=== PATIENT | female | born 1970 | race American Indian/Alaskan Native ===

== ENCOUNTER 2016-07-22 15:09 | Emergency (ER) | payer MEDICARE ==
[2016-07-22] MEDS ORDERED: CATAPRES PO ONE (18:53)
--- NOTE | 2016-07-22 19:20 | XRay Report ---
FINAL REPORT EXAM: XR HAND 3 LT HISTORY: pain TECHNIQUE: 3 views of left hand PRIORS: None. FINDINGS: No fracture is identified. No dislocation seen. Joint spaces are within normal limits. No erosive bony change identified. Carpal bones maintain normal alignment. Distal radius and ulna are intact. No radiopaque foreign bodies seen. IMPRESSION: Negative hand series
[2016-07-22] MEDS ORDERED: NORCO 5/325 PO ONE (19:21)
--- NOTE | 2016-07-22 19:31 | XRay Report ---
FINAL REPORT EXAM: XR WRIST 3 LT HISTORY: pain TECHNIQUE: Left wrist 3 views PRIORS: None. FINDINGS: Carpal bones maintain normal alignment. No acute fracture is identified. The distal radius and ulna are intact. IMPRESSION: Negative wrist series
--- NOTE | 2016-07-22 20:29 | Emergency Department Report ---
ED Upper Extremity Inj HPI - General Chief Complaint: Extremity Injury, Upper Stated Complaint: LT ARM/WRIST/FINGER INJURY Time Seen by Provider: 07/22/16 16:29 Source: patient Mode of arrival: Ambulatory Limitations: No Limitations - History of Present Illness Initial Comments: Patient presents with left lower arm, wrist, finger pain. She states that her son jumped on the bed this morning and landed on her arm. He is 10 years old. She is currently on oxycodone that she gets from her primary care physician Dr. Hinton. She states she gets it for neuropathy. She states she has not taken it since this am. She also presents with elevated blood pressure 181/131 she takes Diovan, clonidine, metoprolol. She has not taken her second or third dose of clonidine. Her pain is a 10/10. She denies chest pain, dizziness, vomiting, nausea. MD Complaint: Injury to:: left, forearm, wrist, hand -: Sudden Other Extremity Injury: Hand: Left, Wrist: Left, Forearm: Left Other Injuries: none Handedness: right Place: home Severity scale (0 -10): 10 Worsens With: other (palpation) Context: direct blow Associated Symptoms: denies other symptoms - Related Data Previous Rx's Medication Instructions Recorded Last Taken Type Oxycodone HCl/Acetaminophen 1 each PO Q6HR PRN #15 tablet 03/18/16 07/21/16 Rx [Percocet 10/325 mg] Allergies Allergy/AdvReac Type Severity Reaction Status Date / Time amoxicillin Allergy Hives Verified 03/17/16 16:35 ED Review of Systems ROS: Stated complaint: LT ARM/WRIST/FINGER INJURY Other details as noted in HPI Constitutional: denies: chills, fever Eyes: denies: eye pain, eye discharge, vision change Respiratory: denies: cough, shortness of breath, wheezing Cardiovascular: denies: chest pain, palpitations Gastrointestinal: denies: abdominal pain, nausea, diarrhea Genitourinary: denies: urgency, dysuria, discharge Musculoskeletal: as per HPI. denies: back pain, joint swelling, arthralgia Skin: denies: rash, lesions Neurological: denies: headache, weakness, paresthesias ED Past Medical Hx - Past Medical History Hx Hypertension: Yes Hx CVA: Yes Hx Seizures: Yes Hx Asthma: Yes Additional medical history: hearing impaired - Surgical History Hx Cholecystectomy: Yes Additional Surgical History: hysterectomy. x 1 - Social History Smoking Status: Current Every Day Smoker Substance Use Type: None - Medications Home Medications: Home Medications Medication Instructions Recorded Confirmed Last Taken Type Oxycodone HCl/Acetaminophen 1 each PO Q6HR PRN #15 tablet 03/18/16 07/22/1604/27 Rx [Percocet 10/325 mg] ED Physical Exam - General Limitations: No Limitations General appearance: alert, in no apparent distress - Head Head exam: Present: atraumatic, normocephalic - Eye Eye exam: Present: normal appearance - Neck Neck exam: Present: normal inspection, full ROM - Respiratory Respiratory exam: Present: normal lung sounds bilaterally. Absent: respiratory distress - Cardiovascular Cardiovascular Exam: Present: regular rate, normal rhythm. Absent: systolic murmur, diastolic murmur, rubs, gallop - Expanded Upper Extremity Exam Left Shoulder Exam: Present: normal inspection, full ROM Upper Arm exam: Present: normal inspection, full ROM Elbow exam: Present: normal inspection, full ROM Forearm Wrist exam: Present: full ROM, tenderness (posterior ), swelling (mild) , ecchymosis (mild) Hand Wrist exam: Present: tenderness, other (pt is able to move her fingers and thumb on left hand but very slowly. She is unable to flex her thumb.). Absent : full ROM, swelling Neuro motor exam: Present: wrist extension intact, thumb opposition intact, thumb adduction intact Vascular: Present: normal capillary refill. Absent: vascular compromise - Back Exam Back exam: Present: normal inspection, full ROM - Neurological Exam Neurological exam: Present: alert, oriented X3 - Psychiatric Psychiatric exam: Present: normal affect, normal mood - Skin Skin exam: Present: warm, dry, intact, normal color. Absent: rash ED Course Vital Signs 07/22/16 07/22/16 07/22/16 15:34 17:42 19:15 Temperature 98.9 F Pulse Rate 115 H 95 H 74 Respiratory 20 20 Rate Blood Pressure 181/131 165/90 Blood Pressure 180/137 [Right] O2 Sat by Pulse 100 99 Oximetry 07/22/16 19:28 Temperature Pulse Rate Respiratory 20 Rate Blood Pressure Blood Pressure [Right] O2 Sat by Pulse Oximetry ED Medical Decision Making - Medical Decision Making Patient presents with injury to left forearm, wrist, hand. The x-ray of her hand and wrist are within normal. Forearm x-ray has not resulted yet. Patient states that she must get home for her children. I will give her splint for her left hand and advise her to follow up with her PCP in one to 2 days. I discussed with patient her elevated blood pressure and advised her to follow up with her PCP in one to 2 days. I discussed that elevated blood pressure that is uncontrolled and lead to heart attack, stroke, end-stage organ failure, and quality of life. - Differential Diagnosis hypertension, wrist fracture, wrist sprain, finger fracture, finger sprain Critical Care Time: No Critical care attestation.: If time is entered above; I have spent that time in minutes in the direct care of this critically ill patient, excluding procedure time. ED Disposition Clinical Impression: Sprain of hand, left, Left wrist sprain Disposition: DISCHARGED TO HOME OR SELFCARE Is pt being admited?: No Does the pt Need Aspirin: No Condition: Stable Instructions: Wrist Sprain (ED), Wrist Injury (ED), Finger Sprain (ED) Additional Instructions: Please be advised to follow-up with her primary care physician for elevated blood pressure. Elevated blood pressure can lead to stroke, heart attack, and organ damage. Time of Disposition: 21:07
[2016-07-22 21:21] VITALS: BP 142/90
--- NOTE | 2016-07-23 07:47 | XRay Report ---
LEFT FOREARM: AP and lateral views of the forearm demonstrate normal mineralization and contours for this patient's age. No destructive changes are noted and the adjacent soft tissues are normal. IMPRESSION: Normal left forearm. LEFT WRIST: Routine views demonstrate the carpal bones to be well mineralized with well preserved bony mineralization and interosseous joint spaces. The carpal and adjacent articular bones have normal contours. The surrounding soft tissues are unremarkable. IMPRESSION: Normal study. Left hand: There is focal swelling around the PIP joint of the fourth digit. There is no foreign body or laceration noted. The underlying bones and joints of this digit as well as the remainder of the hand are unremarkable. Impression: Nonspecific mild fourth digit swelling.
== END 2016-07-22 21:20 | disposition home or self-care (01) ==
LOC: ED 15:09
DX: S63.92XA Sprain of unspecified part of left wrist and hand, initial encounter (principal); I10 Essential (primary) hypertension; R56.9 Unspecified convulsions; J45.909 Unspecified asthma, uncomplicated; Z86.73 Personal history of transient ischemic attack (TIA), and cerebral infarction without residual deficits; F17.200 Nicotine dependence, unspecified, uncomplicated; Z90.49 Acquired absence of other specified parts of digestive tract; Z90.711 Acquired absence of uterus with remaining cervical stump; Z88.1 Allergy status to other antibiotic agents; W06.XXXA Fall from bed, initial encounter; Y93.39 Activity, other involving climbing, rappelling and jumping off; Y92.009 Unspecified place in unspecified non-institutional (private) residence as the place of occurrence of the external cause; Y99.8 Other external cause status

== ENCOUNTER 2016-12-18 16:40 | Emergency (ER) | payer MEDICARE ==
--- NOTE | 2016-12-18 21:21 | XRay Report ---
FINAL REPORT EXAM: XR ELBOW 3 RT HISTORY: fall/pain TECHNIQUE: 3 views of right wrist. PRIORS: None. FINDINGS: Joint spaces maintained. No apparent fracture or dislocation. Soft tissues grossly unremarkable. IMPRESSION: 1. No acute osseous abnormality.
--- NOTE | 2016-12-18 21:24 | XRay Report ---
FINAL REPORT EXAM: XR ELBOW 3 RT HISTORY: fall/pain right elbow. TECHNIQUE: 3 views of right elbow. PRIORS: None. FINDINGS: Joint spaces maintained. No apparent fracture or dislocation. No abnormal fat-pad sign. IMPRESSION: 1. No acute osseous abnormality.
[2016-12-18] MEDS ORDERED: PERCOCET 5/325 PO ONE (21:36)
[2016-12-18] MEDS ORDERED: LOPRESSOR PO ONE (21:36)
[2016-12-18] MEDS ORDERED: CATAPRES PO ONE (21:36)
[2016-12-18] MEDS ORDERED: DIOVAN PO ONE (21:37)
--- NOTE | 2016-12-18 21:39 | Emergency Department Report ---
Upper Extremity - HPI Chief Complaint: Extremity Injury, Upper Stated Complaint: INJURY TO ARM AFTER FALL Upper Extremity: Right Elbow (mild pain s/p fall), Right Wrist (mild pain s/p fall) Occurred When: Today Mechanism: Fall Severity: moderate Symptoms: Yes Pain with Movement, Yes Bruising/Ecchymosis, No Deformity, No Limited Range of Movement, No Numbness, No Weakness, No Swelling Other History: 46 F PMH HTN, Asthma, CVA p/w c/p right elbow abd wrist pain s/p fall states she tripped foward onto right elbow while grandchildren were playign in front of her at home, deneis any LOC, denies hitting head, no neck pain, states her right elbow and her right wrist feels sore patient is fully lucid on exam. Patient is accompanied by her children. Patient states she has been anxious and upset because she recently had a definite family and has a member in the hospital currently. Patient states she has not taken her afternoon or evening dose of hypertension medications ED Review of Systems ROS: Stated complaint: INJURY TO ARM AFTER FALL Other details as noted in HPI Constitutional: denies: chills, fever Eyes: denies: eye pain, eye discharge, vision change ENT: denies: ear pain, throat pain Respiratory: denies: cough, shortness of breath, wheezing Cardiovascular: denies: chest pain, palpitations Endocrine: no symptoms reported Gastrointestinal: denies: abdominal pain, nausea, diarrhea Genitourinary: denies: urgency, dysuria, discharge Musculoskeletal: denies: back pain, joint swelling, arthralgia Skin: denies: rash, lesions Neurological: denies: headache, weakness, paresthesias Psychiatric: denies: anxiety, depression Hematological/Lymphatic: denies: easy bleeding, easy bruising ED Past Medical Hx - Past Medical History Previous Medical History?: Yes Hx Hypertension: Yes Hx CVA: Yes Hx Seizures: Yes Hx Asthma: Yes Additional medical history: hearing impaired - Surgical History Past Surgical History?: Yes Hx Cholecystectomy: Yes Additional Surgical History: hysterectomy. x 1 - Social History Smoking Status: Current Every Day Smoker Substance Use Type: None - Medications Home Medications: Home Medications Medication Instructions Recorded Confirmed Last Taken Type Oxycodone HCl/Acetaminophen 1 each PO Q6HR PRN #15 tablet 03/18/16 07/22/1604/27 Rx [Percocet 10/325 mg] Acetaminophen/Codeine [Tylenol 1 tab PO Q6H PRN #12 tab 12/18/16 Unknown Rx /Codeine # 3 tab] Metoprolol [Lopressor] 25 mg PO DAILY 12/18/16 12/18/16 Unknown History Valsartan [Diovan] 40 mg PO BID 12/18/16 12/18/16 Unknown History cloNIDine [Catapres] 0.1 mg PO 12/18/16 Unknown History Upper Extremity Exam - Exam General: Vital signs noted. No distress. Alert and acting appropriately. Head and Torso: No HEENT Abnormality, No Neck Tenderness, No Chest/Lungs Abnormality, No Abdominal Tenderness, No Back Tenderness Shoulder Exam: Yes Normal Range of Motion in Shoulder, No Shoulder Tenderness, No Clavicle Tenderness, No Shoulder Deformity, No AC Joint Tenderness Arm Exam: No Arm/Humerus Tenderness, No Arm Deformity Elbow: Yes Elbow Tenderness (mild), Yes Normal Range of Motion in Elbow ( flexion and extension intact), No Elbow Deformity Forearm: No Forearm Tenderness, No Forearm Deformity, No Pain with Pronation, No Pain with Supination Wrist: Yes Wrist Tenderness (mild pain on extensor surface), Yes Normal ROM in Wrist, No Wrist Deformity, No Snuffbox Tenderness (No snuffbox pain), No Pain with Axial Thumb Compression Hand: Yes Normal ROM in Digit(s), No Hand Tenderness, No Hand Deformity, No Digit Tenderness, No Digit(s) Deformity, No Tendon Dysfunction CMS Exam: Yes Normal Distal Pulses (distal radial and brachial pulses intact), Yes Normal Capillary Refill (distal pulses intact), No Broken Skin, No Normal Distal Sensation Front/Back of Body, Lg (Color): 1 - mild pain here ED Course Vital Signs 12/18/16 12/18/16 17:20 21:24 Temperature 98.7 F Pulse Rate 103 H 122 H Respiratory 18 20 Rate Blood Pressure 174/125 Blood Pressure 202/150 [Left] O2 Sat by Pulse 99 98 Oximetry ED Medical Decision Making - Medical Decision Making A/P: Right elbow/wrist contusion, hypertension 1- pt given wrist splints and elbow sling for comfort. I advised patient not overuse shoulder sling as it can result in frozen shoulder syndrome. Patient stated she understood this 2- patient has follow-up with her outpatient neurologist and primary care doctor 3- short course Tylenol 3 for pain 4- ptsblood pressure has responded to her hoem regimen. patient endorses NO chest pain shortness of breath no nausea no vomiting no headache no dizziness no abdominal pain no palpitations no shortness of breath. Patient has asymptomatic hypertension. Patient states that her blood pressure is typically 180s systolic and 130s diastolic. Currently on a regimen of metoprolol valsartan and clonidine. She states that she has sufficient medicine at home 5- case d/w Dr. Koo before discharge Critical care attestation.: If time is entered above; I have spent that time in minutes in the direct care of this critically ill patient, excluding procedure time. ED Disposition Clinical Impression: Elbow contusion Qualifiers: Encounter type: initial encounter Laterality: right Qualified Code(s): S50.01XA - Contusion of right elbow, initial encounter Contusion of wrist, right Qualifiers: Encounter type: initial encounter Qualified Code(s): S60.211A - Contusion of right wrist, initial encounter Hypertension Qualifiers: Hypertension type: unspecified secondary hypertension Qualified Code(s): I15.9 - Secondary hypertension, unspecified; I15 - Secondary hypertension Disposition: DC- TO HOME OR SELFCARE Is pt being admited?: No Does the pt Need Aspirin: No Condition: Stable Instructions: Hypertension (ED), Contusion in Adults (ED) Prescriptions: Acetaminophen/Codeine [Tylenol /Codeine # 3 tab] 1 tab PO Q6H PRN #12 tab PRN Reason: Pain Referrals: DEWEY RIVERA MD [Staff Physician] - 3-5 Days Time of Disposition: 23:27
[2016-12-18 23:19] VITALS: BP 166/112
== END 2016-12-18 23:40 | disposition home or self-care (01) ==
LOC: ED 16:40
DX: S50.01XA Contusion of right elbow, initial encounter (principal); S60.211A Contusion of right wrist, initial encounter; I15.9 Secondary hypertension, unspecified; I63.9 Cerebral infarction, unspecified; J45.909 Unspecified asthma, uncomplicated; F17.200 Nicotine dependence, unspecified, uncomplicated; W19.XXXA Unspecified fall, initial encounter; Y93.89 Activity, other specified; Y99.9 Unspecified external cause status; Y92.89 Other specified places as the place of occurrence of the external cause